=== PATIENT | male | born 1945 | race Caucasian/White ===

== ENCOUNTER → 2022-11-03 | Outpatient (CLI) | payer MEDICARE, BC ==
--- NOTE | 2022-11-03 16:30 | CT ---
EXAMINATION TYPE: CT abdomen pelvis w con CT DLP: 1863 mGycm, Automated exposure control for dose reduction was used. DATE OF EXAM: 11/03/2022 4:19 PM COMPARISON: None CLINICAL INDICATION:Male, 77 years old with history of R19.00 Z85.038; TECHNIQUE: Axial CT of the abdomen and pelvis. Sagittal and coronal reformats were created on a [employer] workstation. Contrast used: 100 cc of Isovue-[id number] Oral contrast used: None FINDINGS: LOWER CHEST: Unremarkable ABDOMEN LIVER: Unremarkable GALLBLADDER AND BILE DUCTS: Unremarkable. PANCREAS: Unremarkable. SPLEEN: Unremarkable. ADRENAL GLANDS: Unremarkable. KIDNEYS AND URETERS: No evidence of hydronephrosis or renal calculus. The ureters are unremarkable. PELVIS BLADDER: Posterior bladder diverticula. REPRODUCTIVE: Unremarkable. ABDOMEN & PELVIS STOMACH AND BOWEL: No evidence of bowel obstruction. Postsurgical changes to the ascending colon. Sma ll hiatal hernia. PERITONEUM/RETROPERITONEUM: No evidence of pneumoperitoneum or free fluid. The omentum demonstrates s cattered increased densities within the fat.e . VASCULATURE: No evidence of aortic aneurysm. Atherosclerosis of the arterial vasculature. 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 Right vastus lateralis intramuscular lipoma. LYMPH NODES: No gross evidence for lymphadenopathy. SOFT TISSUE/ABDOMINAL WALL: Bilateral fat-containing inguinal hernias. Suspected left lower abdomen/i nguinal subcutaneous sebaceous cyst measuring up to 3.6 cm. IMPRESSION: 1. Scattered omental nodularity which is nonspecific. Given patient's history of cancer collection w ith priors would be of benefit . No prior was available for comparison. 2. Post surgical changes to the bowel. 3. Suspected left lower abdomen/inguinal subcutaneous sebaceous cyst measuring up to 3.6 cm. 4. Bilateral fat-containing inguinal hernias. 5. Bladder diverticula.
== END | disposition home or self-care (01) ==
LOC: RADCTMAIN 13:55
PROVIDERS: ATTEND Family Medicine
DX: K40.20 Bilateral inguinal hernia, without obstruction or gangrene, not specified as recurrent (principal); K66.8 Other specified disorders of peritoneum; N32.3 Diverticulum of bladder; Z85.038 Personal history of other malignant neoplasm of large intestine
CPT/HCPCS: 82565; 84520; 74177; 36415; Q9967

== ENCOUNTER → 2023-11-02 | Outpatient (CLI) | payer MEDICARE, BC ==
[2023-11-02 13:51] VITALS: BP 159/66; PULSE 62; RESP 16; TEMP 97.8
== END ==
LOC: PROCWHC3 12:50
PROVIDERS: ATTEND Internal Medicine Medical Oncology
DX: Z45.2 Encounter for adjustment and management of vascular access device (principal); C45.7 Mesothelioma of other sites
CPT/HCPCS: 96523

== ENCOUNTER → 2024-02-05 | Outpatient (CLI) | payer MEDICARE, BC ==
[~2024-02-05] MED LIST: SODIUM CHLORIDE 0.9% 500 ML 500 ML in EMPTY BAG 1 BAG IV PRN
[2024-02-05 13:41] VITALS: BP 158/74; PULSE 54; RESP 16; TEMP 98.1
== END ==
LOC: PROCWHC3 12:43
PROVIDERS: ATTEND Internal Medicine Medical Oncology
DX: Z45.2 Encounter for adjustment and management of vascular access device (principal); C45.7 Mesothelioma of other sites
CPT/HCPCS: 96523